=== PATIENT | male | born 1985 | race Caucasian/White ===

== ENCOUNTER 2021-03-06 15:23 | Emergency (ER) | payer MEDICAID, SELFPAY ==
[2021-03-06 15:46] VITALS: BP 165/103; PULSE 110; RESP 18; TEMP 36.9; O2SAT 100; BMI 19.9
--- NOTE | 2021-03-06 16:36 | ED_ITS ---
HPI - Alcohol General Chief Complaint: ETOH/Substance Use Stated Complaint: Detox Time Seen by Provider: 03/06/21 16:24 Source: patient and family Mode of arrival: wheelchair Limitations: no limitations History of Present Illness HPI narrative: This is a unfortunate 35-year-old male with longstanding history of alcoholism started drinking alcohol at the age of 20 who has had couple periods of sobriety and addition to this he has a history of polycythemia vera, fatty liver disease and asthma currently residing in [place] where he has been admitted to [facility] Today, he presents with his mother and she who examined after visiting a friend's house were they have noticed that over the past several days he has become more disorganized and also having conclusions and very tremorous. He reports that in addition to drinking alcohol he went on a binge last week and stop drinking completely 4 days ago and since then he has gradually had the tremors and has been having hallucinations. MD complaint: alcohol withdrawal Last drink: Days (ago) Chronic alcohol use: Yes Previous visits for alcohol intoxication: Yes ([facility], [facility] ) Associated symptoms: nausea Treatments prior to arrival: none Related Data Allergies Allergy/AdvReac Type Severity Reaction Status Date / Time No Known Allergies Allergy Verified 03/06/21 15:51 Review of Systems Review of Systems: Constitutional: No Weight loss, No Fever, No Chills, No Night Sweats, No Fatigue, No Malaise ENT/Mouth: No Hearing loss, No Ear Pain, No Nasal Congestion, No Sinus Pain, No Hoarseness, No sore throat, No Rhinorrhea, No Swallowing Difficulty Eyes: No Eye Pain, No Swelling, No Redness, No Foreign Body, No Vision Changes Cardiovascular: No Chest Pain, No SOB, No Dyspnea on Exertion, No Orthopnea, No Edema, No Palpitations Respiratory: No Cough, No Sputum, No Wheezing, No Smoke Exposure, No Dyspnea Gastrointestinal: + Nausea, No Vomiting, No Diarrhea, No Constipation, No abdominal Pain, No Hematochezia, No Melena Genitourinary: No Dysuria, No Urinary Frequency, No Hematuria, No Urinary Incontinence, No Urgency, No Flank Pain, No Urinary Flow Changes, No Hesitancy Musculoskeletal: No joint pain, No Myalgias, No Joint Swelling Skin: No Skin Lesions, No rash Neuro: No Weakness, No Numbness, No Paresthesias, No Loss of Consciousness, No Dizziness, No Headache Psych: No Social Issues Heme/Lymph: No Bruising, No Bleeding,No Lymphadenopathy Endocrine: No Polyuria, No Polydipsia, No Temperature Intolerance [facility] Past Medical History Medical History (Updated 03/06/21 @ 19:31 by [place] Calab[place] NP) Alcoholic gastritis Fatty liver Polycythemia vera Social History Social History Advance Directives: No Advance Directives Information Provided: No Physical Exam Vital Signs: Vital Signs: Last Vital Signs Temp 98.7 F 03/06/21 17:52 Pulse 101 H 03/06/21 19:06 Resp 24 H 03/06/21 19:06 BP 133/87 03/06/21 19:06 Pulse Ox 99 03/06/21 19:06 Body Mass Index 19.9 Const: General: anxious and tired appearing Nutritional Appearance: cachectic (Slightly) Orientation/consciousness: patient oriented x3 HENMT: Head: Yes normal to inspection Ears: hearing grossly normal bilaterally Eyes: General: appearance normal, both eyes and all related structures Vi sual Bach: normal visual bach by confrontation Neck: Neck: Yes normal visual inspection, No positive Brudzinski's sign, No positive Kernig's sign and No tender Thyroid: Thyroid normal Chest: Chest palpation & inspection: normal inspection of the chest Resp: Effort & Inspection: normal respiratory effort Cardio: Jugular venous distension: no JVD GI: Inspection: Yes normal to inspection Percussion: Yes normal to percussion Auscultation: normal bowel sounds : General: Yes no CVA tenderness Back/Spine/Pelvis: Back: no CVA tenderness Skin: General skin exam: no rashes or lesions noted Neuro: Other: Tremors in hands General: patient oriented x3 Cranial nerves: Yes CN's II-XII intact bilaterally Extrem: General: Yes normal to inspection Course Reevaluation(s) Reevaluation #1: Interview 35-year-old male with history of a polycythemia vera, asthma and fatty liver disease in the setting of chronic alcohol abuse presenting with alcohol withdrawal graded patient at baseline drinks 6 pack with mixed drinks and has been binge drinking for the past week. Abruptly 4 days ago family noticed that he was having hallucinations and tremors not acting himself. No recent injury or fall. He is visiting from [place] to here. Upon arrival CIWA score of 14, denies any recent injury or fall. Plan for labs, EKG and will treat with IV fluids, this facility does not have banana bag will give him p.o. thiamine, multivitamin, folic acid and thiamine. He is visiting again from [place] and his mother injuries at bedside with him. Given his assessment physician will require admission for alcohol withdrawal. No signs of symptoms of acute injury or recent fall or infection. Reevaluation #2: CIWA improved to 10 after 2 mg of Ativan IV fluids labs overall reassuring refuses EKG sinus tach on the bedside monitor. Plan for admission here he refuses absolutely does not want to stay here he would like to be transferred to [facility] as he lives in [place] and he has been in the facility recently. Patient educated on EMTALA mother at bedside. He absolutely does not want to be admitted here. Case discussed with charge nurse I will p vee a call to [facility] given that we have the ability to admit the patient and treat the patient here if they have availability and able to accept we will transfer otherwise plan for admission here. Reevaluation #3: Called over to bedside patient declining EMS would like to go to [facility] himself given his current state of mind and hallucinations unsafe to drive mother Irene does not feel comfortable driving him, I was able to encourage him to go via EMS. Consultations Consultation #1: Call placed to [facility] case discussed with Dr. Orozco who informed me that familiar with the patient has evaluated him recently. They have the capacity to accept the patient she will accept to her service for ER to ER transfer. Patient at this time stable vital stable. Will provide all labs and documentation for transfer. Patient will be transferred via EMS. MDM - Alcohol Lab Data Result diagrams: 03/06/21 17:07 03/06/21 17:07 Labs: Lab Results 03/06/21 03/06/21 03/06/21 Range/Units 17:07 17:07 17:07 WBC 14.5 H (4.8-10.8) X10*3/uL RBC 5.15 (4.60-5.80) X10*6/uL Hgb 13.3 L (14.0-18.0) g/dl Hct 42.1 (42-52) % MCV 81.7 (80-98) fL MCH 25.8 L (27.0-33.0) pg MCHC 31.6 (31.0-36.0) g/dl RDW 19.4 H (11.0-16.0) % Plt Count 215 (160-400) X10*3/uL MPV 10.1 (9.4-12.4) fL Immature Gran % (Auto) 0.2 (0.0-0.4) % Neut % (Auto) 83.0 H (45-73) % Lymph % (Auto) 8.1 L (20-40) % Price % (Auto) 8.3 (2-11) % Eos % (Auto) 0.1 (0-4) % Baso % (Auto) 0.3 (0-2) % Lymph # (Auto) 1.2 (1.2-4.9) X10*3/uL Price # (Auto) 1.2 (0.1-1.2) X10*3/uL Eos # (Auto) 0.0 (0.0-0.4) X10*3/uL Baso # (Auto) 0.1 (0.0-0.2) X10*3/uL Abs Immat Gran (auto) 0.03 (0.00-0.03) X10*3/uL Absolute Neuts (auto) 12.1 H (2.0-8.3) X10*3/uL Absolute Nucleated RBC 0.000 (0.0-0.012) X10*3/uL Nucleated RBC % (auto) 0.0 (0.0-0.2) /100WBC PT 11.0 (9.9-13.0) SEC INR 1.0 (0.9-1.1) APTT 37.9 (24.1-38.0) SEC Sodium 139 (135-145) mmol/L Potassium 4.0 (3.3-5.1) mmol/L Chloride 102 (96-108) mmol/L Carbon Dioxide 24 (22-29) mmol/L Anion Gap 17 (12-20) BUN 6 L (9-16) mg/dL Creatinine 0.89 (0.5-1.4) mg/dL Estim Creat Clear Calc 116.3 Estimated GFR > 60 Random Glucose 105 (60-115) mg/dL Calcium 9.4 (8.4-10.2) mg/dL Magnesium 2.6 (1.6-2.6) mg/dL Total Bilirubin 1.0 (0.0-1.0) mg/dL AST 66 H (5-37) U/L ALT 52 H (0-40) U/L Alkaline Phosphatase 69 (39-117) U/L Total Protein 7.9 (6.5-8.0) g/dL Albumin 4.0 (3.5-5.0) g/dL Urine Color Urine Appearance Urine pH (5.0-8.0) Ur Specific [place] (1.005-1.025) Urine Protein (NEG-TRACE) MG/DL Urine Glucose (UA) (NEG) MG/DL Urine Ketones (NEG) MG/DL Urine Blood (NEG) Urine Nitrite (NEG) Ur Leukocyte Esterase (NEG) Urine RBC (0) /HPF Urine WBC (0-4) /HPF Ur Squamous Epith Cells /LPF Urine Bacteria /LPF Urine Mucus /LPF Ethyl Alcohol mg/dL COVID-19 (MINNIE) (Negative) COVID-19 Clin Com 03/06/21 03/06/21 03/06/21 Range/Units 17:07 17:28 18:30 WBC (4.8-10.8) X10*3/uL RBC (4.60-5.80) X10*6/uL Hgb (14.0-18.0) g/dl Hct (42-52) % MCV (80-98) fL MCH (27.0-33.0) pg MCHC (31.0-36.0) g/dl RDW (11.0-16.0) % Plt Count (160-400) X10*3/uL MPV (9.4-12.4) fL Immature Gran % (Auto) (0.0-0.4) % Neut % (Auto) (45-73) % Lymph % (Auto) (20-40) % Price % (Auto) (2-11) % Eos % (Auto) (0-4) % Baso % (Auto) (0-2) % Lymph # (Auto) (1.2-4.9) X10*3/uL Price # (Auto) (0.1-1.2) X10*3/uL Eos # (Auto) (0.0-0.4) X10*3/uL Baso # (Auto) (0.0-0.2) X10*3/uL Abs Immat Gran (auto) (0.00-0.03) X10*3/uL Absolute Neuts (auto) (2.0-8.3) X10*3/uL Absolute Nucleated RBC (0.0-0.012) X10*3/uL Nucleated RBC % (auto) (0.0-0.2) /100WBC PT (9.9-13.0) SEC INR (0.9-1.1) APTT (24.1-38.0) SEC Sodium (135-145) mmol/L Potassium (3.3-5.1) mmol/L Chloride (96-108) mmol/L Carbon Dioxide (22-29) mmol/L Anion Gap (12-20) BUN (9-16) mg/dL Creatinine (0.5-1.4) mg/dL Estim Creat Clear Calc Estimated GFR Random Glucose (60-115) mg/dL Calcium (8.4-10.2) mg/dL Magnesium (1.6-2.6) mg/dL Total Bilirubin (0.0-1.0) mg/dL AST (5-37) U/L ALT (0-40) U/L Alkaline Phosphatase (39-117) U/L Total Protein (6.5-8.0) g/dL Albumin (3.5-5.0) g/dL Urine Color YELLOW Urine Appearance CLEAR Urine pH 6.0 (5.0-8.0) Ur Specific [place] 1.020 (1.005-1.025) Urine Protein NEG (NEG-TRACE) MG/DL Urine Glucose (UA) NEG (NEG) MG/DL Urine Ketones >=80 (NEG) MG/DL Urine Blood NEG (NEG) Urine Nitrite NEG (NEG) Ur Leukocyte Esterase NEG (NEG) Urine RBC 0 (0) /HPF Urine WBC 0 (0-4) /HPF Ur Squamous Epith Cells TRACE /LPF Urine Bacteria NONE /LPF Urine Mucus TRACE /LPF Ethyl Alcohol < 10 mg/dL COVID-19 (MINNIE) Negative (Negative) COVID-19 Clin Com See Note Discharge Plan Discharge Clinical Impression: Alcohol withdrawal syndrome Patient Disposition: Xfer Other Transfer Details: [facility] accepting Dr. Orozco
[2021-03-06] MEDS: 0.9 % Sodium Chloride 1,000 ML 999 ML IV ×2 (17:09→19:32)
[2021-03-06 17:13] LABS: MANUAL DIFF FLAG NO
[2021-03-06 17:15] LABS: Basophils Absolute Auto 0.1 X10*3/uL (0.0-0.2); Basophils Percent Auto 0.3 % (0-2); Eosinophils Percent Auto 0.1 % (0-4); Hematocrit 42.1 % (42-52); Hemoglobin 13.3 g/dl (14.0-18.0); Imm Gran Abs Auto 0.03 X10*3/uL (0.00-0.03); Imm Gran Pct Auto 0.2 % (0.0-0.4); Lymphocytes Absolute Auto 1.2 X10*3/uL (1.2-4.9); Lymphocytes Percent Auto 8.1 % (20-40); Mean Corpuscular HGB Conc 31.6 g/dl (31.0-36.0); Mean Corpuscular Hemoglobin 25.8 pg (27.0-33.0); Mean Corpuscular Volume 81.7 fL (80-98); Mean Platelet Volume 10.1 fL (9.4-12.4); Monocytes Absolute Auto 1.2 X10*3/uL (0.1-1.2); Monocytes Percent Auto 8.3 % (2-11); Neutrophils Absolute Auto 12.1 X10*3/uL (2.0-8.3); Platelet Count 215 X10*3/uL (160-400); Red Blood Count 5.15 X10*6/uL (4.60-5.80); Red Cell Distribution Width 19.4 % (11.0-16.0); White Blood Count 14.5 X10*3/uL (4.8-10.8)
[2021-03-06] MEDS: Thiamine HCL 100 MG TABLET PO (17:25)
[2021-03-06] MEDS: Multivitamin TABLET 1 TAB PO (17:25)
[2021-03-06] MEDS: LORazepam 2 MG/ML VIAL IVPUSH ×6 (17:25→21:18)
[2021-03-06 17:26] LABS: Partial Thromboplastin Time 37.9 SEC (24.1-38.0)
--- NOTE | 2021-03-06 17:45 | PC.NURSE ---
pt refused ekg
[2021-03-06 17:46] LABS: Ethanol < 10 mg/dL
[2021-03-06 17:49] LABS: Alanine Aminotransferase 52 U/L (0-40); Alkaline Phosphatase 69 U/L (39-117); Anion Gap 17 (12-20); Aspartate Amino Transferase 66 U/L (5-37); Blood Urea Nitrogen 6 mg/dL (9-16); Calcium 9.4 mg/dL (8.4-10.2); Carbon Dioxide 24 mmol/L (22-29); Chloride 102 mmol/L (96-108); Creatinine Clr Calc Pharmacy 116.3; Estimated Glomerular Filt Rate > 60; Glucose Random 105 mg/dL (60-115); Magnesium 2.6 mg/dL (1.6-2.6); Sodium 139 mmol/L (135-145); Total Protein 7.9 g/dL (6.5-8.0)
[2021-03-06 17:52] VITALS: BP 154/112; PULSE 94; RESP 18; TEMP 37.1; O2SAT 98
--- NOTE | 2021-03-06 17:54 | PC.NURSE ---
DARIN MERAZ IS AWARE OF PATIENT HIGH BLOOD PRESSURE .
--- NOTE | 2021-03-06 17:55 | PC.NURSE ---
DARIN MERAZ IS AWARE THAT PATIENT REFUSED EKG .
[2021-03-06 18:09] LABS: COVID-19 Test Negative (Negative); IDNOW Serial# 9DD0AD1C
--- NOTE | 2021-03-06 18:16 | MHC.RECOVSUP ---
Recovery Support note: Patient is a 35 year old [place] speaking male who presented to [facility] ED due to hallucinations related to alcohol withdrawal. This video game script writer met with patient to discuss his alcohol use and recovery supports. Patient is accompanied by his mother. Patient reports consuming 6 fireball nips on average a day. Patient recounted the events that lead up to his hospitalization. Patient reports he plans to maintain sobriety, stating that he has a family and he is causing significant harm to his body. Discussed recovery supports with patient including DONNA, ANNY and outpatient therapy. Patient's mother reports she is working on getting him connected with a therapist. Encouraged patient to consider what his recovery will look like while he is in treatment. Patient acknowledged and reports no questions at this time.
[2021-03-06 18:43] LABS: Glucose Urine UA NEG (NEG); Leukocyte Esterase Urine NEG (NEG); Nitrite Urine NEG (NEG); Urine Blood NEG (NEG); Urine Ketones >=80 MG/DL (NEG); Urine Protein NEG (NEG-TRACE)
[2021-03-06 18:44] LABS: Appearance Urine CLEAR; Color Urine YELLOW
[2021-03-06 18:48] LABS: Mucus Urine TRACE /LPF; RBC Urine 0 /HPF (0); Squamous Epithelial Cell Urine TRACE /LPF; WBC Urine 0 /HPF (0-4)
[2021-03-06 19:06] VITALS: BP 133/87; PULSE 101; RESP 24; O2SAT 99
--- NOTE | 2021-03-06 19:11 | PC.NURSE ---
Pt resting in bed with mother at bedside. Pt requesting to leave although provider is facilitating a transfer to [facility] per pt request. VSS at this time. Pt continues refusing EKG at this time, refusing to wear telemetry. MARIA E Mendoza, CHILDREN'S MINISTRY DIRECTOR aware.
--- NOTE | 2021-03-06 19:15 | PC.NURSE ---
EXEC. CREATIVE DIRECTOR at bedside discussing plan for transfer to [facility]. SZ pads applied to bed.
[2021-03-06] MEDS: ondansetron HCL 4 MG/2 ML VIAL IVPUSH (19:32)
--- NOTE | 2021-03-06 19:33 | PC.NURSE ---
MARIA E 10, pt medicated with Ativan per SEP. Awaiting ambulance transport to [facility].
[2021-03-06 20:07] LABS: Amphetamine Screen Urine Not Detected (Not Detect); Barbiturates, Urine Not Detected (Not Detect); Benzodiazepines Screen Urine Not Detected (Not Detect); Cannabinoid Screen Urine Not Detected (Not Detect); Cocaine Screen Urine Not Detected (Not Detect); Fentanyl, urine Not Detected (Not Detect); Opiate Screen Urine Not Detected (Not Detect); Phencyclidine Screen Urine Not Detected (Not Detect)
[2021-03-06 20:53] VITALS: BP 137/87; PULSE 103; RESP 20
--- NOTE | 2021-03-06 20:55 | PC.NURSE ---
Pt remains restless and agitated despite multiple doses of Ativan. Pt grabbing at things in the air, seeing dinosaurs. Pt anxious, trying to get OOB, mom holding pt in bed. MARIA E Rocha, AUDITING CODER notified. VSS. Plan for IV Ativan at this time.
[2021-03-06 21:24] VITALS: O2SAT 100; O2SAT 74
[2021-03-06 21:25] VITALS: BP 133/90; PULSE 97; RESP 20; O2SAT 100
--- NOTE | 2021-03-06 21:26 | PC.NURSE ---
EMS at bedside for transport.
== END 2021-03-06 22:45 | disposition other institution (70) ==
PROVIDERS: Nurse Practitioner Primary Care; Emergency Provider Emergency Medicine
DX: F10.230 Alcohol dependence with withdrawal, uncomplicated (principal); Y90.0 Blood alcohol level of less than 20 mg/100 ml; Z20.822 Contact with and (suspected) exposure to COVID-19
CPT/HCPCS: 36415; 80053; 80307; 81001; 82077; 83735; 85025; 85610; 85730; 87635; 96361; 96374; 96375; 96376; 99285; J2060; J2405

== ENCOUNTER 2023-05-04 19:05 | Emergency (ER) | payer OTHER, SELFPAY ==
--- NOTE | ~2023-05-04 | XR_ITS ---
EXAMINATION: XR CHEST CLINICAL INFORMATION: Cough COMPARISON: None available. TECHNIQUE: 2 views of the chest were obtained. FINDINGS: The cardiomediastinal silhouette is normal. There is no focal consolidation or pleural effusion. The bony structures and soft tissues are unremarkable. XR/XR chest 2V IMPRESSION: No active cardiopulmonary disease.
--- NOTE | ~2023-05-04 | US_ITS ---
EXAMINATION: US ABDOMEN COMPLETE CLINICAL INFORMATION: Vomiting, elevated bilirubin with known alcoholic fatty change. COMPARISON: None available. TECHNIQUE: Real-time imaging of the abdominal viscera. FINDINGS: PANCREAS: Normal. ABDOMINAL AORTA: The proximal, mid, and distal segments are normal in caliber. INFERIOR VENA CAVA: Visualized portions are normal. LIVER: The liver is enlarged measuring 19.3).. The liver is normal in size. The liver contour is normal. Parenchymal echogenicity is increased. No focal hepatic lesion. There is no intrahepatic biliary duct dilatation seen. GALLBLADDER: Normal. The gallbladder is physiologically distended without evidence of stones, sludge, polyps, wall thickening or pericholecystic fluid. COMMON BILE DUCT: Normal in caliber measuring 0.3 cm in diameter. RIGHT KIDNEY: Normal. No hydronephrosis. No renal calculi or focal parenchymal lesions. The kidney measures 9.9 cm in maximum dimension. LEFT KIDNEY: Normal. No hydronephrosis. No renal calculi or focal parenchymal lesions. The kidney measures 9.2 cm in maximum dimension. SPLEEN: Normal. The spleen measures 9.3 cm in maximum dimension. FREE FLUID: None. US/US abdomen complete IMPRESSION: 1. Diffusely echogenic liver without focal lesion. Mild hepatomegaly 2. Rest of the abdominal ultrasound is unremarkable.
[2023-05-04 19:17] VITALS: BP 130/70; BP 146/82; PULSE 110; PULSE 76; RESP 19; TEMP 36.6; O2SAT 100; BMI 18.6
--- NOTE | 2023-05-04 19:24 | ED_ITS ---
HPI - Nausea/Vomiting/Diarrhea General Chief complaint: Nausea/Vomiting/Diarrhea Stated complaint: nausea/ vomting x2 days Time Seen by Provider: 05/04/23 19:18 Source: patient Mode of arrival: ambulatory Limitations: no limitations History of Present Illness HPI Narrative: 37-year-old male with longstanding history of alcoholism. Patient also has history of polycythemia vera fatty liver and asthma. He presents from home. He states his son started with cough 4 days ago he started with a cough 3 days ago which he states he was feeling better yesterday and then this morning while trying to take DayQuil allergies he started vomiting. He states he has vomited 6 times. He states he only drinks 2 hard cider is today. Patient arrives tremulous tachycardic and hypertensive. He states he only has to hard cider is a day he denies having any issues with drinking he states he is doing much better. He denies any falls or injuries he denies chest pain shortness of breath denies having any surgeries to his abdomen in the past. Related Data Previous Rx's Medication Instructions Recorded famotidine 20 mg tablet (Pepcid) 20 mg PO BID PRN Gastritis #60 tabs 05/04/23 ondansetron 4 mg disintegrating 4 mg PO Q6H #14 tabs 05/04/23 tablet Allergies Allergy/AdvReac Type Severity Reaction Status Date / Time No Known Allergies Allergy Verified 05/04/23 19:46 Review of Systems 2 Review of Systems: Review of systems: General: Patient denies any fever chills recent illness or falls Musculoskeletal: Denies back pain or body aches or other injuries HEENT: denies headache, runny nose, ear pain Respiratory: denies shortness of breath, cough Cardiovascular: no chest pain or palpitations : denies dysuria, frequency Abdomen: nausea vomiting denies abdominal pain Extremities: no swelling, no pain Skin: no diaphoresis Yes all other systems are reviewed and are negative [facility] Past Medical History Medical History (Updated 05/04/23 @ 20:21 by Eliot Gamble DO) Polycythemia vera Alcoholic gastritis Fatty liver Physical Exam 2 Vital Signs: Vital Signs: Last Vital Signs Temp 97.9 F 05/04/23 19:17 Pulse 110 H 05/04/23 19:17 Resp 19 05/04/23 19:17 BP 146/82 H 05/04/23 19:17 Pulse Ox 100 05/04/23 19:17 O2 Del Method Room Air 05/04/23 19:17 BMI result Body Mass Index 18.6 General: Well-appearing well-nourished in no signs of distress HEENT: Normocephalic atraumatic mild scleral icterus Neck: No signs of JVD, no masses no tenderness or lymphadenopathy Cardiovascular: Regular rate and rhythm Respiratory: Clear to auscultation bilaterally Abdomen: Soft nontender no masses Extremities: Normal pedal pulses no signs of edema Skin: Dry warm no rashes patient is slightly jaundiced Back: No tenderness full ROM Course Course Course Narrative: 2016 HR is improved looks much better does have an elevated biliriubin at 2.1 was lower previously. Likely alcohol related. I will send for US to rule out any obstructive cause of his jaudice. 2051 US is unremarkable. I will send home. Medications Administered Discontinued Medications Generic Name Dose Route Start Last Admin Trade Name Freq PRN Reason Stop Dose Admin Famotidine 20 mg 05/04/23 19:45 05/04/23 19:47 Famotidine/Pf 20 Mg/2 Ml Vial IVPUSH 05/04/23 19:46 20 mg ONCE ONE Administration Haloperidol Lactate 5 mg 05/04/23 19:24 05/04/23 19:47 Haloperidol Lactate 5 Mg/Ml Vial IVPUSH 05/04/23 19:25 5 mg STAT STA Administration Sodium Chloride 1,000 mls @ 999 mls/hr 05/04/23 19:30 05/04/23 19:47 Ns IV 05/04/23 20:30 999 mls/hr .Q1H1M RONEY Administration Lorazepam 2 mg 05/04/23 19:24 05/04/23 19:47 Lorazepam 2 Mg/Ml Vial IVPUSH 05/04/23 19:25 2 mg ONCE ONE Administration Medical Decision Making Medical Decision Making [facility] Narrative: Patient is fairly tremulous as well as some signs of jaundice I will get labs including LFTs and ammonia level I will give patient Haldol and Ativan with fluids. Patient is tachycardic on arrival Differential Diagnosis Differential Diagnoses: The differential diagnosis associated with the presentation includes Gastritis alcohol withdrawal dehydration electrolyte abnormality hepatic encephalopathy covid or other viral infection, pneumonia Admission/Observation Consideration of admission/observation: Escalation of care including admission/observation considered Lab Data [facility] Lab Attestation statement: I reviewed the patient's lab results. Known fatty liver with worsening bilirubin of 2.1 and lft's more elevated assoicated with alcoholic hepatitis. 05/04/23 19:44 05/04/23 19:44 Labs: Lab Results 05/04/23 Range/Units 19:44 WBC 6.4 (4.8-10.8) X10*3/uL RBC 4.77 (4.60-5.80) X10*6/uL Hgb 15.4 (14.0-18.0) g/dl Hct 45.9 (42.0-52.0) % MCV 96.2 (80.0-98.0) fL MCH 32.3 (27.0-33.0) pg MCHC 33.6 (31.0-36.0) g/dl RDW 12.7 (11.0-16.0) % Plt Count 106 L (160-400) X10*3/uL MPV 10.8 (9.4-12.4) fL Immature Gran % (Auto) 0.3 (0.0-0.4) % Neut % (Auto) 77.3 H (45-73) % Lymph % (Auto) 10.3 L (20-40) % [place] % (Auto) 11.0 (2-11) % Eos % (Auto) 0.0 (0-4) % Baso % (Auto) 1.1 (0-2) % Lymph # (Auto) 0.7 L (1.2-4.9) X10*3/uL [place] # (Auto) 0.7 (0.1-1.2) X10*3/uL Eos # (Auto) 0.0 (0.0-0.4) X10*3/uL Baso # (Auto) 0.1 (0.0-0.2) X10*3/uL Abs Immat Gran (auto) 0.02 (0.00-0.03) X10*3/uL Absolute Neuts (auto) 4.9 (2.0-8.3) x10*3/uL Absolute Nucleated RBC 0.000 (0.0-0.012) X10*3/uL Nucleated RBC % (auto) 0.0 (0.0-0.2) /100WBC Sodium 147 H (135-145) mmol/L Potassium 4.0 (3.3-5.1) mmol/L Chloride 102 (96-108) mmol/L Carbon Dioxide 19 L (22-29) mmol/L Anion Gap 30 H (12-20) BUN 4 L (9-16) mg/dL Creatinine 0.95 (0.5-1.4) mg/dL Estim Creat Clear Calc 100.0 Estimated GFR > 60 Random Glucose 128 H (60-115) mg/dL Calcium 9.4 (8.4-10.2) mg/dL Total Bilirubin 2.1 H (0.0-1.0) mg/dL Direct Bilirubin 1.1 H (0.0-0.5) mg/dL AST 171 H (5-37) U/L ALT 71 H (0-40) U/L Alkaline Phosphatase 96 (39-117) U/L Ammonia 28 (13-55) umol/L Total Protein 7.2 (6.5-8.0) g/dL Albumin 3.6 (3.5-5.0) g/dL Lipase 16 (8-78) U/L Ethyl Alcohol < 10 mg/dL COVID-19 (MINNIE) Negative (Negative) COVID-19 Clin Com See Note Independent Interpretation I performed an independent interpretation of an: EKG and Plain X-Ray Interpretation: Rate 78 normal sinus rhythm normal intervals no signs of ischemia QTC slightly prolonged at 606. External Record Review External record reviewed: Inpatient record Chronic Conditions Asthma, alcoholism Discharge Plan Discharge Clinical Impression: Dehydration, Vomiting, Jaundice, Alcohol withdrawal Patient Disposition: Home, Self-Care Instructions: Dehydration (ED), Hyponatremia (ED), At-Risk Alcohol Use (ED), Acute Nausea and Vomiting (ED), Alcohol Withdrawal (ED), Jaundice (ED) Additional Instructions: Lesia were seen today for vomiting and found have jaudice and signs of alcohol withdrawal You need to stop drinking alcohol. This is causing some liver disease that can become irreversible. Please call to follow up with your doctor. Prescriptions: New famotidine [Pepcid] 20 mg tablet 20 mg PO BID PRN (Reason: Gastritis) Qty: 60 0RF ondansetron 4 mg tablet,disintegrating 4 mg PO Q6H Qty: 14 0RF
--- NOTE | 2023-05-04 19:29 | ECG_ITS ---
Test Reason : ABDOMINAL PAIN Blood Pressure : / mmHG Vent. Rate : 078 BPM Atrial Rate : 078 BPM P-R Int : 146 ms QRS Dur : 082 ms QT Int : 532 ms P-R-T Axes : 078 -22 064 degrees QTc Int : 606 ms Possible wandering atrial pacemaker Prolonged QT Abnormal ECG No previous ECGs available cardiology eval advised Referred By: Eliot Gamble Electronically Signed By:IDRIS PETERSON MD
[2023-05-04] MEDS: Famotidine/PF 20 MG/2 ML VIAL IVPUSH (19:47)
[2023-05-04] MEDS: Haloperidol Lactate 5 MG/ML VIAL IVPUSH (19:47)
[2023-05-04] MEDS: LORazepam 2 MG/ML VIAL IVPUSH (19:47)
[2023-05-04] MEDS: 0.9 % Sodium Chloride 1,000 ML 999 ML IV (19:47)
[2023-05-04 19:49] LABS: MANUAL DIFF FLAG NO
[2023-05-04 19:56] LABS: Basophils Absolute Auto 0.1 X10*3/uL (0.0-0.2); Basophils Percent Auto 1.1 % (0-2); Hematocrit 45.9 % (42.0-52.0); Hemoglobin 15.4 g/dl (14.0-18.0); Imm Gran Abs Auto 0.02 X10*3/uL (0.00-0.03); Imm Gran Pct Auto 0.3 % (0.0-0.4); Lymphocytes Absolute Auto 0.7 X10*3/uL (1.2-4.9); Lymphocytes Percent Auto 10.3 % (20-40); Mean Corpuscular HGB Conc 33.6 g/dl (31.0-36.0); Mean Corpuscular Hemoglobin 32.3 pg (27.0-33.0); Mean Corpuscular Volume 96.2 fL (80.0-98.0); Mean Platelet Volume 10.8 fL (9.4-12.4); Monocytes Absolute Auto 0.7 X10*3/uL (0.1-1.2); Neutrophils Absolute Auto 4.9 x10*3/uL (2.0-8.3); Neutrophils Percent Auto 77.3 % (45-73); Platelet Count 106 X10*3/uL (160-400); Red Blood Count 4.77 X10*6/uL (4.60-5.80); Red Cell Distribution Width 12.7 % (11.0-16.0); White Blood Count 6.4 X10*3/uL (4.8-10.8)
[2023-05-04 19:58] LABS: Ammonia 28 umol/L (13-55)
[2023-05-04 20:06] LABS: COVID-19 Test Negative (Negative); IDNOW Serial# BCCEAD1C
[2023-05-04 20:08] LABS: Alanine Aminotransferase 71 U/L (0-40); Albumin Level 3.6 g/dL (3.5-5.0); Alkaline Phosphatase 96 U/L (39-117); Anion Gap 30 (12-20); Aspartate Amino Transferase 171 U/L (5-37); Bilirubin Direct 1.1 mg/dL (0.0-0.5); Bilirubin Total 2.1 mg/dL (0.0-1.0); Blood Urea Nitrogen 4 mg/dL (9-16); Calcium 9.4 mg/dL (8.4-10.2); Carbon Dioxide 19 mmol/L (22-29); Chloride 102 mmol/L (96-108); Estimated Glomerular Filt Rate > 60; Ethanol < 10 mg/dL; Glucose Random 128 mg/dL (60-115); Lipase 16 U/L (8-78); Sodium 147 mmol/L (135-145); Total Protein 7.2 g/dL (6.5-8.0)
--- NOTE | 2023-05-04 20:10 | PC.NURSE ---
pt medicated according to mar for abdominal discomfort and n/v.pt tolerated well
--- NOTE | 2023-05-04 20:57 | PC.NURSE ---
librium not given per dr mott medication held. pt reports feeling better denies n/v. pt mother at bedside
[2023-05-04 21:01] VITALS: BP 104/69; PULSE 83; RESP 13; TEMP 36.7; O2SAT 98
--- NOTE | 2023-05-04 21:29 | PC.NURSE ---
pt ambulatory but noted to be drowsy from medication. pt provided with wheelchair to pt mother vehicle. iv removed from L AC. vss. pt provided with discharge packet. pt verbalized understanding of discharge plan
== END 2023-05-04 21:32 | disposition home or self-care (01) ==
PROVIDERS: Emergency Provider Student in an Organized Health Care Education/Training Program
DX: E86.0 Dehydration (principal); R11.2 Nausea with vomiting, unspecified; R17 Unspecified jaundice; R00.0 Tachycardia, unspecified; F10.230 Alcohol dependence with withdrawal, uncomplicated; Y90.0 Blood alcohol level of less than 20 mg/100 ml; Z11.52 Encounter for screening for COVID-19
CPT/HCPCS: 36415; 71046; 76700; 80048; 80076; 80307; 82140; 83690; 85025; 87635; 93005; 96361; 96374; 96375; 99285; J2060